=== PATIENT | male | born 1945 | race Caucasian/White ===

== ENCOUNTER 2017-05-14 14:56 | Emergency (ER) | payer BC ==
[~2017-05-14] VITALS: Ht 175.3 cm; Wt 81.7 kg
[~2017-05-14 14:56] MED LIST: ATENOLOL 50MG T50 M1 PO; ATIVAN2 MG PO; CLONAZEPAM2 MG PO; CRESTOR10 MG PO; CYMBALTA30 MG PO; GLUCOPHAGE500 MG PO; MOBIC15 MG PO; NORVASC 5 MG TAB5 MG PO; TAMSULOSIN HCL0.4 MG PO; VASOTEC10 MG PO
[2017-05-14 15:33] LABS: ABSOLUTE EOSINOPHILS 0.3 thou/uL (0.0-0.7); ABSOLUTE LYMPHOCYTES 1.4 thou/uL (0.8-5.3); ABSOLUTE MONOCYTES 0.6 thou/uL (0.0-1.2); ABSOLUTE NEUTROPHILS 4.2 thou/uL (1.6-8.1); BASOPHILS 0.7 %; EOSINOPHILS 4.1 %; HEMATOCRIT 42.5 % (42.0-52.0); HEMOGLOBIN 14.7 gm/dL (14.0-18.0); LYMPHOCYTES 21.3 %; MCH 31.3 pg (26.0-34.0); MCHC 34.6 g/dL (28.0-37.0); MCV 90.4 fL (80.0-100.0); MONOCYTES 9.5 %; MPV 8.7 fl. (7.2-11.1); NUCLEATED RBCS 0 /100WBC; PLATELET COUNT* 203 thou/uL (150-400); POLYS 64.4 %; RDW-CV 13.2 % (10.5-14.5); WBC 6.6 thou/uL (4.0-11.0)
[2017-05-14 15:36] LABS: ANION GAP 6 mmol/L (7-16); BUN 14 mg/dL (7-18); CALCIUM 8.6 mg/dL (8.5-10.1); CHLORIDE 103 mmol/L (98-107); CO2 30 mmol/L (21-32); CREATININE 0.9 mg/dL (0.6-1.3); GLUCOSE 195 mg/dL (70-99); INR 1.1; POTASSIUM 3.9 mmol/L (3.5-5.1); PROTIME 10.3 Seconds (9.20-11.50); SODIUM 139 mmol/L (136-145)
[2017-05-14 15:47] LABS: ALBUMIN 3.8 g/dL (3.4-5.0); ALKALINE PHOSPHATASE 70 U/L (46-116); LIPASE 375 U/L (73-393); NT-PRO BRAIN NAT PEPTIDE 112 pg/mL (<300); SGOT 19 U/L (15-37); SGPT 25 U/L (30-65); TOTAL BILIRUBIN 0.6 mg/dL (<0.1-1.0); TOTAL PROTEIN 7.1 g/dL (6.4-8.2); TROPONIN-I LEVEL <0.06 ng/mL (<0.06)
[2017-05-14] MEDS ORDERED: ATIVAN1 MG PO (16:31)
[2017-05-14] MEDS ORDERED: CYMBALTA30 MG PO (16:32)
[2017-05-14] MEDS ORDERED: CELEBREX 200 M200 M1 PO (16:32)
[2017-05-14] MEDS ORDERED: FLOMAX0.4 MG PO (16:33)
[2017-05-14] MEDS ORDERED: FARXIGA10 MG PO (16:33)
[2017-05-14] MEDS ORDERED: GLIMEPIRIDE4 MG PO (16:34)
[2017-05-14] MEDS ORDERED: VASOTEC10 MG PO (16:35)
[2017-05-14 17:35] VITALS: BP 133/79
--- NOTE | 2017-05-15 12:44 | EKG ---
[place] [address] ELECTROCARDIOGRAM REPORT Name: MILOMARCELOBENITO Valeria Room: [facility]#: [id number] Admission: 05/14/17 Attend Phys: Discharge: 05/14/17 Date of : 43 Report #: [id number] THIS REPORT FOR: //name// [facility] ED Test Date: 2017-05-14 Test Time: 15:01:35 Pat Name: BENITO PEDRAZA Department: Room: Gender: M City Driver: Naila CLARK : 1945 Requested By: Keshav Cheema Order Number: [id number] MD: James Garces Measurements Intervals [place] Rate: 61 P: 35 CT: 172 QRS: 3 QRSD: 86 T: 11 QT: 389 QTc: 392 Interpretive Statements Sinus rhythm Probable left atrial enlargement Compared to ECG 07/15/2013 16:08:17 No significant changes Electronically Signed On 05-15-2017 12:43:50 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
== END 2017-05-14 17:36 | disposition home or self-care (01) ==
LOC: M.ERS 14:56
PROVIDERS: Emergency Medicine
DX: R07.89 Other chest pain (principal); I10 Essential (primary) hypertension; E11.9 Type 2 diabetes mellitus without complications

== ENCOUNTER 2018-08-06 16:29 | Emergency (ER) | payer BC ==
[~2018-08-06] VITALS: Ht 180.3 cm; Wt 83.5 kg
[~2018-08-06 16:29] MED LIST changes: +ATIVAN1 MG PO; +CELEBREX 200 M200 M1 PO; +FARXIGA10 MG PO; +FLOMAX0.4 MG PO; +GLIMEPIRIDE4 MG PO
[2018-08-06 16:52] LABS: ABSOLUTE BASOPHILS 0.1 thou/uL (0.0-0.2); ABSOLUTE EOSINOPHILS 0.3 thou/uL (0.0-0.7); ABSOLUTE LYMPHOCYTES 2.2 thou/uL (0.8-5.3); ABSOLUTE MONOCYTES 0.6 thou/uL (0.0-1.2); ABSOLUTE NEUTROPHILS 3.5 thou/uL (1.6-8.1); BASOPHILS 1.1 %; EOSINOPHILS 4.3 %; HEMATOCRIT 43.4 % (42.0-52.0); HEMOGLOBIN 14.9 gm/dL (14.0-18.0); LYMPHOCYTES 33.1 %; MCH 30.9 pg (26.0-34.0); MCHC 34.3 g/dL (28.0-37.0); MCV 90.2 fL (80.0-100.0); MONOCYTES 9.3 %; MPV 8.2 fl. (7.2-11.1); NUCLEATED RBCS 0 /100WBC; PLATELET COUNT* 190 thou/uL (150-400); POLYS 52.2 %; RBC 4.81 mil/uL (4.50-6.00); RDW-CV 13.6 % (10.5-14.5); WBC 6.7 thou/uL (4.0-11.0)
[2018-08-06 17:00] LABS: ANION GAP 8 mmol/L (7-16); BUN 14 mg/dL (7-18); CALCIUM 9.1 mg/dL (8.5-10.1); CHLORIDE 101 mmol/L (98-107); CO2 29 mmol/L (21-32); CREATININE 0.9 mg/dL (0.6-1.3); GLUCOSE 147 mg/dL (70-99); POTASSIUM 3.8 mmol/L (3.5-5.1); SODIUM 138 mmol/L (136-145)
[2018-08-06 17:02] LABS: APTT 28.2 Seconds (25.0-31.3); PROTIME 10.2 Seconds (9.20-11.50)
[2018-08-06] MEDS ORDERED: CHROMIUM400 MCG PO (17:05)
[2018-08-06] MEDS ORDERED: TRULICITY0.75 MG/0. SUBQ (17:06)
[2018-08-06] MEDS ORDERED: FLONASE 0.05%50 MCG NASAL (17:08)
[2018-08-06] MEDS ORDERED: FISH OIL 1,001000 M2 PO (17:08)
[2018-08-06] MEDS ORDERED: MOBIC15 MG PO (17:09)
[2018-08-06] MEDS ORDERED: GABAPENTIN 100100 MG PO (17:09)
[2018-08-06] MEDS ORDERED: CHILDREN'S ASPI81 MG PO (17:10)
[2018-08-06 17:16] LABS: ALBUMIN 4.1 g/dL (3.4-5.0); ALKALINE PHOSPHATASE 81 U/L (46-116); CK-MB MASS 7.6 ng/mL (<0.5-3.6); NT-PRO BRAIN NAT PEPTIDE 82 pg/mL (<300); SGOT 19 U/L (15-37); SGPT 29 U/L (30-65); TOTAL BILIRUBIN 0.6 mg/dL (<0.1-1.0); TOTAL PROTEIN 7.6 g/dL (6.4-8.2); TROPONIN-I LEVEL <0.06 ng/mL (<0.06)
[2018-08-06 17:53] VITALS: BP 146/86
--- NOTE | 2018-08-07 11:22 | EKG ---
[place] [address] ELECTROCARDIOGRAM REPORT Name: BENITO PEDRAZA Room: [facility]#: [id number] Admission: 08/06/18 Attend Phys: Discharge: 08/06/18 Date of : 43 Report #: [id number] THIS REPORT FOR: //name// [facility] ED Test Date: 2018-08-06 Test Time: 16:41:29 Pat Name: BENITO PEDRAZA Department: Room: Gender: M Assembly Line Machine Operator: Naila CLARK : 1945 Requested By: Nav Elder Order Number: [id number] MD: James Garces Measurements Intervals [place] Rate: 63 P: 42 [place]: 162 QRS: 12 QRSD: 91 T: 13 QT: 402 QTc: 412 Interpretive Statements Sinus rhythm Probable left atrial enlargement Abnormal R-wave progression, early transition Compared to ECG 05/14/2017 15:01:35 No significant changes Electronically Signed On 08-07-2018 11:22:36 CDT by James Garces [email or web address] <ELECTRONICALLY SIGNED> By: James Garces MD, [facility] 08/07/18 1122 1641 164 James Garces MD, [facility] /EPI
== END 2018-08-06 17:55 | disposition home or self-care (01) ==
LOC: M.ERS 16:29
PROVIDERS: Family Medicine
DX: R41.82 Altered mental status, unspecified (principal); I10 Essential (primary) hypertension; E11.9 Type 2 diabetes mellitus without complications

== ENCOUNTER → 2019-02-04 | Outpatient (CLI) | payer BC ==
[~2019-02-04] MED LIST changes: +CHILDREN'S ASPI81 MG PO; +CHROMIUM400 MCG PO; +FISH OIL 1,001000 M2 PO; +FLONASE 0.05%50 MCG NASAL; +GABAPENTIN 100100 MG PO; +TRULICITY0.75 MG/0. SUBQ
== END ==
LOC: M.CT 12:58
DX: K76.0 Fatty (change of) liver, not elsewhere classified (principal); R53.83 Other fatigue; M47.815 Spondylosis without myelopathy or radiculopathy, thoracolumbar region; C61 Malignant neoplasm of prostate; J98.4 Other disorders of lung; J84.10 Pulmonary fibrosis, unspecified; M41.86 Other forms of scoliosis, lumbar region; M47.816 Spondylosis without myelopathy or radiculopathy, lumbar region; M25.78 Osteophyte, vertebrae; I70.0 Atherosclerosis of aorta

== ENCOUNTER → 2019-02-26 | Outpatient (CLI) | payer BC | LOC: M.CT 02-19 14:00 | DX: J84.10 Pulmonary fibrosis, unspecified (principal); K76.89 Other specified diseases of liver; E11.65 Type 2 diabetes mellitus with hyperglycemia; I10 Essential (primary) hypertension; M17.0 Bilateral primary osteoarthritis of knee; C61 Malignant neoplasm of prostate; I25.10 Atherosclerotic heart disease of native coronary artery without angina pectoris; M47.819 Spondylosis without myelopathy or radiculopathy, site unspecified ==

== ENCOUNTER 2019-04-08 19:10 | Emergency (ER) | payer BC ==
[~2019-04-08] VITALS: Ht 177.8 cm; Wt 73.9 kg
[2019-04-08 20:49] LABS: ABSOLUTE BASOPHILS 0.1 thou/uL (0.0-0.2); ABSOLUTE EOSINOPHILS 0.2 thou/uL (0.0-0.7); ABSOLUTE LYMPHOCYTES 1.6 thou/uL (0.8-5.3); ABSOLUTE MONOCYTES 0.5 thou/uL (0.0-1.2); ABSOLUTE NEUTROPHILS 4.3 thou/uL (1.6-8.1); BASOPHILS 0.8 %; EOSINOPHILS 2.4 %; HEMATOCRIT 42.5 % (42.0-52.0); HEMOGLOBIN 14.5 gm/dL (14.0-18.0); LYMPHOCYTES 24.1 %; MCH 31.2 pg (26.0-34.0); MCHC 34.1 g/dL (28.0-37.0); MCV 91.4 fL (80.0-100.0); MONOCYTES 7.9 %; MPV 8.3 fl. (7.2-11.1); NUCLEATED RBCS 0 /100WBC; PLATELET COUNT* 174 thou/uL (150-400); POLYS 64.8 %; RBC 4.65 mil/uL (4.50-6.00); WBC 6.6 thou/uL (4.0-11.0)
[2019-04-08 20:57] LABS: CALCIUM 8.7 mg/dL (8.5-10.1); CREATININE 1.3 mg/dL (0.6-1.3); POTASSIUM 5.6 mmol/L (3.5-5.1)
[2019-04-08 21:02] LABS: ALBUMIN 3.5 g/dL (3.4-5.0); MAGNESIUM 1.9 mg/dL (1.8-2.4); TOTAL BILIRUBIN 0.4 mg/dL (<0.1-1.0); TOTAL PROTEIN 6.6 g/dL (6.4-8.2)
[2019-04-08 21:12] LABS: URINE BILIRUBIN NEGATIVE (Negative); URINE BLOOD NEGATIVE (Negative); URINE CLARITY CLEAR; URINE COLOR YELLOW; URINE GLUCOSE-RANDOM 3+ (Negative); URINE KETONES TRACE (Negative); URINE LEUKOCYTES-REFLEX NEGATIVE (Negative); URINE NITRITE-REFLEX NEGATIVE (Negative); URINE PROTEIN NEGATIVE (Negative); URINE SPECIFIC GRAVITY <= 1.005 (1.005-1.030); URINE UROBILINOGEN 0.2 E.U./dl (0.2-1.0)
[2019-04-08 23:52] VITALS: BP 120/60
== END 2019-04-09 00:12 | disposition home or self-care (01) ==
LOC: M.ERS 19:10
PROVIDERS: Personal Emergency Response Attendant
DX: E11.65 Type 2 diabetes mellitus with hyperglycemia (principal); I10 Essential (primary) hypertension

== ENCOUNTER → 2019-06-26 | Outpatient (CLI) | payer BC ==
[2019-06-26 12:14] LABS: ABSOLUTE BASOPHILS 0.1 thou/uL (0.0-0.2); ABSOLUTE EOSINOPHILS 0.3 thou/uL (0.0-0.7); ABSOLUTE LYMPHOCYTES 2.2 thou/uL (0.8-5.3); ABSOLUTE MONOCYTES 0.7 thou/uL (0.0-1.2); ABSOLUTE NEUTROPHILS 5.5 thou/uL (1.6-8.1); BASOPHILS 0.9 %; EOSINOPHILS 2.9 %; HEMATOCRIT 43.1 % (42.0-52.0); HEMOGLOBIN 15.2 gm/dL (14.0-18.0); LYMPHOCYTES 25.1 %; MCH 31.8 pg (26.0-34.0); MCHC 35.3 g/dL (28.0-37.0); MCV 90.3 fL (80.0-100.0); MONOCYTES 8.2 %; MPV 8.7 fl. (7.2-11.1); NUCLEATED RBCS 0 /100WBC; PLATELET COUNT* 196 thou/uL (150-400); POLYS 62.9 %; RBC 4.77 mil/uL (4.50-6.00); RDW-CV 13.2 % (10.5-14.5); WBC 8.7 thou/uL (4.0-11.0)
[2019-06-26 12:25] LABS: ALBUMIN 3.8 g/dL (3.4-5.0); CALCIUM 9.1 mg/dL (8.5-10.1); POTASSIUM 4.8 mmol/L (3.5-5.1); TOTAL BILIRUBIN 0.5 mg/dL (<0.1-1.0); TOTAL PROTEIN 7.5 g/dL (6.4-8.2)
== END ==
LOC: M.LAB 11:26
PROVIDERS: Internal Medicine
DX: E11.65 Type 2 diabetes mellitus with hyperglycemia (principal); I10 Essential (primary) hypertension

== ENCOUNTER → 2019-10-08 | Outpatient (CLI) | payer BC | LOC: M.MRI 07-30 09:07 | PROVIDERS: ATTEND Registered Nurse Diabetes Educator | DX: M51.36 Other intervertebral disc degeneration, lumbar region (principal); M47.814 Spondylosis without myelopathy or radiculopathy, thoracic region; K76.89 Other specified diseases of liver; M47.812 Spondylosis without myelopathy or radiculopathy, cervical region; M41.84 Other forms of scoliosis, thoracic region; M46.04 Spinal enthesopathy, thoracic region; M48.04 Spinal stenosis, thoracic region; M51.24 Other intervertebral disc displacement, thoracic region; M48.061 Spinal stenosis, lumbar region without neurogenic claudication; M47.816 Spondylosis without myelopathy or radiculopathy, lumbar region; M51.37 Other intervertebral disc degeneration, lumbosacral region; M48.07 Spinal stenosis, lumbosacral region; G89.29 Other chronic pain ==

== ENCOUNTER 2019-12-06 15:25 | Emergency (ER) | payer BC ==
[~2019-12-06] VITALS: Ht 172.7 cm; Wt 81.2 kg
[~2019-12-06 15:25] MED LIST changes: +INSULIN LI100 UNIT/1 SUBQ; +TRESIBA FL100 UNIT/1 SUBQ
[2019-12-06 15:37] LABS: ABSOLUTE BASOPHILS 0.1 thou/uL (0.0-0.2); ABSOLUTE EOSINOPHILS 0.5 thou/uL (0.0-0.7); ABSOLUTE LYMPHOCYTES 1.9 thou/uL (0.8-5.3); ABSOLUTE MONOCYTES 0.8 thou/uL (0.0-1.2); ABSOLUTE NEUTROPHILS 4.8 thou/uL (1.6-8.1); EOSINOPHILS 6.3 %; HEMATOCRIT 43.1 % (42.0-52.0); HEMOGLOBIN 15.3 gm/dL (14.0-18.0); LYMPHOCYTES 23.4 %; MCH 31.7 pg (26.0-34.0); MCHC 35.6 g/dL (28.0-37.0); MONOCYTES 10.3 %; MPV 7.6 fl. (7.2-11.1); NUCLEATED RBCS 0 /100WBC; PLATELET COUNT* 187 thou/uL (150-400); RBC 4.84 mil/uL (4.50-6.00); RDW-CV 13.5 % (10.5-14.5); WBC 8.1 thou/uL (4.0-11.0)
[2019-12-06 15:50] LABS: CALCIUM 8.8 mg/dL (8.5-10.1)
[2019-12-06 15:53] LABS: APTT 24.8 Seconds (25.0-31.3)
[2019-12-06 16:05] LABS: ALBUMIN 3.9 g/dL (3.4-5.0); CK-MB MASS 8.7 ng/mL (<0.5-3.6); TOTAL BILIRUBIN 0.6 mg/dL (<0.1-1.0); TOTAL PROTEIN 7.4 g/dL (6.4-8.2)
[2019-12-06 18:17] VITALS: BP 135/70
--- NOTE | 2019-12-07 13:00 | EKG ---
[place] [address] ELECTROCARDIOGRAM REPORT Name: BENITO PEDRAZA Room: [facility]#: [id number] Admission: 12/06/19 Attend Phys: Discharge: 12/06/19 Date of : 43 Date of Service: 12/06/19 1533 Report #: [id number] THIS REPORT FOR: //name// [facility] ED Test Date: 2019-12-06 Test Time: 15:33:04 Pat Name: BENITO PEDRAZA Department: Room: Gender: Blue Line Operator: [facility] : 1945 Requested By: Nav Elder Order Number: [id number] MD: Christos Diaz Measurements Intervals [place] Rate: 69 P: 24 [place]: 167 QRS: 20 QRSD: 88 T: 13 QT: 380 QTc: 407 Interpretive Statements Sinus rhythm Compared to ECG 08/06/2018 16:41:29 No significant changes Electronically Signed On 12-07-2019 13:00:27 CDT by Christos Diaz [email or web address] <ELECTRONICALLY SIGNED> By: Christos Diaz MD, [facility] 12/07/19 1300 1533 153 Christos Diaz MD, FAC /EPI
== END 2019-12-06 18:18 | disposition home or self-care (01) ==
LOC: M.ERS 15:25
PROVIDERS: Family Medicine
DX: R07.89 Other chest pain (principal); I10 Essential (primary) hypertension; E11.9 Type 2 diabetes mellitus without complications; Z88.8 Allergy status to other drugs, medicaments and biological substances

== ENCOUNTER 2021-05-02 00:57 | Emergency (ER) | payer BC ==
[~2021-05-02] VITALS: Ht 172.7 cm; Wt 81.7 kg
[~2021-05-02 00:57] MED LIST changes: +CALTRATE+D3 PL1 EACH PO; +CENTRUM ADULT120 MCG PO; +FUROSEMIDE 40 M40 MG PO; +LEVEMIR FL100 UNIT/2 SUBQ; +NEXIUM40 MG PO; +POTASSIUM20 PO; +PROSCAR 5MG TABL5 MG PO; +TYLENOL EXTRA500 MG PO; +VITAMIN C500 M1 PO
[2021-05-02] MEDS ORDERED: ERLEADA60 MG PO ×2 (01:21→01:34)
[2021-05-02] MEDS ORDERED: NORVASC5 MG PO (01:21)
[2021-05-02] MEDS ORDERED: CELECOXIB100 MG PO (01:22)
[2021-05-02] MEDS ORDERED: TENORMIN25 MG PO (01:22)
[2021-05-02] MEDS ORDERED: CRESTOR5 MG PO (01:27)
[2021-05-02] MEDS ORDERED: CLONAZEPAM 0.50.5 M1 PO (01:27)
[2021-05-02] MEDS ORDERED: DULOXETINE HCL30 MG PO (01:28)
[2021-05-02] MEDS ORDERED: VASOTEC10 MG PO (01:28)
[2021-05-02] MEDS ORDERED: AMARYL4 MG PO (01:29)
[2021-05-02] MEDS ORDERED: FLONASE 0.05%50 MCG NASAL (01:29)
[2021-05-02] MEDS ORDERED: ATIVAN1 M1 PO (01:30)
[2021-05-02] MEDS ORDERED: INVOKANA300 MG PO (01:30)
[2021-05-02] MEDS ORDERED: FLOMAX0.4 MG PO (01:31)
[2021-05-02] MEDS ORDERED: METFORMIN HCL500 M3 PO (01:31)
[2021-05-02] MEDS ORDERED: TOUJEO SOL300 UNIT/1 SUBQ (01:32)
[2021-05-02] MEDS ORDERED: VALACYCLOVIR1000 MG PO (01:33)
[2021-05-02 02:15] VITALS: BP 154/79
== END 2021-05-02 02:31 | disposition home or self-care (01) ==
LOC: M.ERS 00:57
DX: S50.812A Abrasion of left forearm, initial encounter (principal); M25.562 Pain in left knee; I10 Essential (primary) hypertension; E11.9 Type 2 diabetes mellitus without complications; Z79.899 Other long term (current) drug therapy; Z91.041 Radiographic dye allergy status; Z88.8 Allergy status to other drugs, medicaments and biological substances; W19.XXXA Unspecified fall, initial encounter; Y93.89 Activity, other specified; Y92.89 Other specified places as the place of occurrence of the external cause; Y99.8 Other external cause status